=== PATIENT | female | born 1960 | race Two or more races ===

== ENCOUNTER 2023-03-05 10:38 | Emergency (ER) | payer OTHER ==
[2023-03-05] MEDS ORDERED: Orphenadrine Citrate 60 MG/2 ML VIAL ONE (11:54)
[2023-03-05] MEDS ORDERED: Ketorolac Tromethamine 30 MG/ML VIAL ONE (11:54)
== END 2023-03-05 13:07 | disposition home or self-care (01) ==
LOC: ERS 10:38
DX: M62.838 Other muscle spasm (principal); M25.512 Pain in left shoulder
CPT/HCPCS: 93005; 96372; J1885; J2360